=== PATIENT | male | born 1945 | race Caucasian/White ===

== ENCOUNTER 2020-05-31 08:34 | Emergency (ER) | payer MEDICARE, SELFPAY ==
[2020-05-31 08:35] VITALS: BP 150/100; PULSE 74; RESP 18; TEMP 36.6; O2SAT 99; BMI 25.9
--- NOTE | 2020-05-31 08:49 | CT_ITS ---
STUDY: CT ABDOMEN AND PELVIS WITHOUT CONTRAST REASON FOR EXAM: Male, 74 years old. LT FLANK PAIN RADIATION DOSAGE (If Supplied By Facility): CTDIvol = ( 13.49 ) mGy, DLP = ( 764.94 ) mGycm TECHNIQUE: Transaxial images were obtained from the dome of the diaphragm to the symphysis pubis without oral contrast, and without intravenous contrast. Sagittal and coronal images were reconstructed. Individualized dose optimization techniques were used for this CT. COMPARISON: None. FINDINGS: Minimal degree of from increased interstitial markings at the lung bases with mild bronchiectasis suggestive of bibasilar scarring. The visualized portions of the heart are within normal limits. Normal liver. Normal gallbladder and extrahepatic biliary system. Normal spleen. Normal pancreas. Normal bilateral adrenal glands. Mild degree of a right perinephric stranding. Perinephric stranding of the left kidney with some mild degree of hydroureter nephrosis and hydroureter due to a 2.5 mm calculus in the distal portion of the left ureter just proximal to the ureterovesical junction. There is evidence of a small bilateral parapelvic renal cysts more prominent on the left side. Normal visualized stomach. Normal small intestine. There are multiple colonic diverticula consistent with diverticulosis. The appendix is visualized and appears normal. There is scattered atherosclerotic calcification of the abdominal aorta, without a demonstrated aneurysm. Normal inferior vena cava. There is borderline retroperitoneal lymphadenopathy with enlarged nodes no greater than 10mm in the short axis diameter. Normal urinary bladder. Normal abdominal wall. Minimal anterior listhesis of L5 on S1 with spondylolysis of the pars interarticularis of the L5 vertebrae. CT/Abdomen/Pelvis without Cont IMPRESSION: Mild left hydronephrosis and hydroureter due to a 2.5 mm calculus in the distal portion of the left ureter just proximal to the ureterovesical junction. Bilateral perinephric stranding. Small bilateral parapelvic renal cysts more prominent on the left side. Electronically Signed: Misbah Colby, at 9:53 EDT , Service support ,
[2020-05-31] MEDS: Ondansetron 4 MG/2 ML Vial IV (08:55)
[2020-05-31] MEDS: Morphine 4 MG/ML Syringe IV ×2 (08:55→09:54)
[2020-05-31 09:01] LABS: Absolute Lymphocyte Count 1.17 X10^3/uL (0.83-4.51); Absolute Neutrophil Count 5.2 X10^3/uL (2.0-7.7); Basophil# 0.04 X10^3/uL; Basophil% 0.6 % (0-1); Eosinophils% 1.4 % (0-5); Hematocrit 46.3 % (40-54); Hemoglobin 15.5 g/dL (13.0-16.5); Lymphocyte # 1.17 X10^3/ul (4.0); Lymphocyte % 16.3 % (19-41); Mean Corp Hgb Conc 33.5 g/dL (32-36); Mean Corpuscular Hgb 32.6 pg (27.0-32.0); Mean Corpuscular Volume 97.5 fL (80-94); Mean Platelet Vol. 9.2 fl (6.2-12.0); Monocyte# 0.64 X10^3/uL; Monocyte% 8.9 % (0-10); NRBC Flagged by Analyzer 0 % (0-5); Neutrophil # 5.19 X10^3/uL (2.7-7.7); Neutrophil % 72.5 % (47-70); Platelet Count 241 K/mm3 (150-450); RBC Distribution Width CV 12.1 % (11.6-14.6); RBC Distribution Width SD 43.7 fl (35.1-43.9); Red Blood Count 4.75 M/mm3 (4.6-6.2); White Blood Count 7.2 K/mm3 (4.4-11.0)
[2020-05-31] MEDS: 0.9% Normal Saline 1,000 ML 250 ML IV (09:01)
[2020-05-31 09:11] LABS: Anion Gap 3 (5-15); BUN 16 mg/dL (7-18); BUN/Creat Ratio 10.5 RATIO (10-20); Calcium,Total 9.6 mg/dL (8.5-10.1); Chloride 109 mmol/L (98-107); Creatinine, Serum 1.53 mg/dL (0.70-1.30); EST Glomerular Filtration Rate 47 mL/min (>60); Est Glom Filt Rate - Afr Amer 57 mL/min (>60); Estimated Creatinine Clearance 45.11 ml/min; Glucose 123 mg/dL (74-106); Potassium 3.9 mmol/L (3.5-5.1); Sodium Level 142 mmol/L (136-145)
--- NOTE | 2020-05-31 09:13 | ED.DCSUM_ITS ---
- ER Visit Summary Date of Service: 05/31/20 Chief Complaint: Flank and abdominal pain History of Present Illness: The patient is a [address] Ha. He has a history of kidney stones. He reports that this morning at 330 he was awakened by left flank and left lower quadrant abdominal pain. States it is continuous sharp pain is 10 of 10 worsening to 10 currently. Is worsened by nothing including movement. Is also relieved by nothing. He denies any associated nausea, vomiting, or diarrhea. Last bowel movement was today. No melena medic easy. No dysuria or frequency. States this is similar to when he had kidney stones in the past. Physical Examination: Vitals: Stable. Afebrile. General: Well-nourished and well-developed. Head: Normocephalic atraumatic. Neck: Supple, no lymphadenopathy. No JVD. Nontender. Cardiovascular: Regular rate and rhythm. No murmurs. Respiratory: No respiratory distress. Clear to auscultation bilaterally. Abdominal: Soft, mild left lower quadrant and suprapubic tenderness to palpation, nondistended, normal bowel sounds. No guarding, rebound, or peritoneal signs. Back: No CVA tenderness. Extremities: Nontender, no edema. Skin: Normal color, no rash. Neurologic: Alert and oriented ?3. Cranial nerves II through XII are intact. Normal strength and sensation. Psych: Normal affect. Test Results: CBC shows 7 neutrophils of 73 lymphocytes 16. Chem-7 shows a chloride 109, glucose 123, creatinine 1.53. Urinalysis shows greater than 100 reds. No evidence of infection. Clinical Impression(s) from Imaging Studies Abdomen/Pelvis CT 05/31/20 08:49 IMPRESSION: Mild left hydronephrosis and hydroureter due to a 2.5 mm calculus in the distal portion of the left ureter just proximal to the ureterovesical junction. Bilateral perinephric stranding. Small bilateral parapelvic renal cysts more prominent on the left side. Electronically Signed: Misbah Colby, at 9:53 EDT , Service support , Emergency Department Course and Treatment: Patient had an IV placed. He was given morphine and Zofran IV. He is resting more comfortably. Treatment Plan: Patient will be discharged with Percocet, Zofran, naproxen. Instructed to follow-up with Dr. Arciniega in 1 week if not improving. Return to the emergency department for any worsening symptoms. Disposition: To home in improved and stable condition. Impression: 1 1. Left ureterolithiasis. This note was generated with [employer] dictation software. It may contain incorrect words, spelling, and punctuation that were not noted in review of the chart prior to signing ED Disposition - Plan for ED Patient: Instructions: ED Renal Stone w Colic Prescriptions: Naproxen [Naprosyn] 500 mg PO BID #14 tab Oxycodone HCl/Acetaminophen [Percocet 5/325] 1 tab PO Q6H PRN PRN 3 Days #12 tab PRN Reason: Pain Ondansetron [Zofran Odt] 4 mg PO Q8H PRN PRN #10 tab PRN Reason: Nausea Referrals: Kamran Arciniega MD [STAFF PHYSICIAN] - 1 Week if not improving
[2020-05-31] MEDS: Ketorolac 15 MG/ML Vial IV (10:56)
[2020-05-31 10:58] VITALS: BP 138/76; PULSE 80; RESP 16; O2SAT 99
--- NOTE | 2020-05-31 11:31 | ED.RN ---
MULTIPLE ATTEMPTS MADE TO URINAE. DR COSTA MADE AWARE. OBSERVE PT UNTIL ABLE TO URINATE.
[2020-05-31 13:01] VITALS: BP 155/89; PULSE 82; RESP 16; O2SAT 99
[2020-05-31 13:06] LABS: Bacteria 0 SEEN /hpf (None Seen); Mucous, Urine 0 SEEN /hpf (<or=2+); White Blood Cells 0 SEEN /hpf (0-5)
[2020-05-31 13:09] LABS: Color, Urine Yellow (Yellow); Glucose, Dipstick Normal (Normal); Ketone-Dipstick 5 mg/dl (Negative); Leukocyte Esterase-Dipstick 25 /ul (Negative); Nitrite-Dipstick Negative (Negative); Occult Blood-Urine 250 /ul (Negative); Protein-Dipstick Negative (Negative); Urine Bilirubin Dipstick Negative (Negative); Urine Clarity Clear (Clear); Urine Urobilinogen Normal (Normal); Urine pH 6.5 (5.0 - 8.0)
[2020-05-31 13:28] LABS: Red Blood Cells-Urine > 100 SEEN /hpf (0-5); Squamous Epithelial Cells - UA 0-5 SEEN /hpf (0-5)
[2020-05-31 14:15] VITALS: BP 135/85; PULSE 77; RESP 15; O2SAT 97
== END 2020-05-31 14:16 | disposition home or self-care (01) ==
PROVIDERS: Emergency Provider Emergency Medicine; PCP Internal Medicine
DX: N13.2 Hydronephrosis with renal and ureteral calculous obstruction (principal); Z87.442 Personal history of urinary calculi
CPT/HCPCS: 74176; 80048; 81001; 85025; 96361; 96374; 96375; 96376; 99283; J7030; A4216; J2405

== ENCOUNTER 2020-07-09 03:49 | Emergency (ER) | payer MEDICARE, SELFPAY ==
[2020-07-09 03:50] VITALS: BP 153/105; PULSE 78; RESP 18; TEMP 36.4; O2SAT 99; BMI 27.1
--- NOTE | 2020-07-09 03:56 | CT_ITS ---
STUDY: CT ABDOMEN AND PELVIS WITHOUT CONTRAST REASON FOR EXAM: Male, 74 years old patient with left sided flank pain and bladder pressure. Past medical history of kidney stones. RADIATION DOSAGE (If Supplied By Facility): CTDIvol = ( 9.04 ) mGy, DLP = ( 700.62 ) mGycm TECHNIQUE: Transaxial images were obtained from the dome of the diaphragm to the symphysis pubis without oral contrast, and without intravenous contrast. Sagittal and coronal images were reconstructed. Individualized dose optimization techniques were used for this CT. COMPARISON: CT of the abdomen and pelvis dated 05/31/2020. FINDINGS: There is mild elevation of left hemidiaphragm. There is a left basilar compressive atelectasis. The visualized portions of the heart are within normal limits. Normal liver. Normal gallbladder and extrahepatic biliary system. Normal spleen. There is diffuse atrophy of the pancreas. Normal bilateral adrenal glands. The right kidney appears to have parapelvic cysts which measure up to 10.4 mm. There is moderate left-sided hydronephrosis and hydroureter secondary to a distal ureteral calculus at the ureterovesical junction measuring approximately 4 mm. There is moderate left-sided perinephric stranding and fluid probably secondary to the hydronephrosis. Normal visualized stomach. There is no evidence for dilated bowel, ascites or pneumoperitoneum. The small bowel has a grossly normal unenhanced appearance. The ascending colon is not distended which gives the appearance of thickened jiménez. This does visible ulcer; scattered diverticula. The appendix is visualized and appears normal. Normal abdominal aorta. Normal inferior vena cava. Normal retroperitoneum. Normal urinary bladder. There are prostatic calcifications. There appear to be inguinal hernias containing fat. There is spondylolysis of L5. Bones appear osteopenic. Estimated thoracic and lumbar vertebral bodies have normal height and alignment. CT/Abdomen/Pelvis without Cont IMPRESSION: Moderate left-sided hydronephrosis and hydroureter secondary to a distal ureteral calculus. Electronically Signed: Kareen Bradshaw MD at 4:57 EDT , Service support ,
--- NOTE | 2020-07-09 03:57 | ED.VISSUMM ---
- ER Visit Summary Date of Service: 07/09/20 Chief Complaint: Left flank pain History of Present Illness: The patient is a [address] Ha. He reports his left flank pain began abruptly approximately 4 hours ago. Is a sharp pain is 1010 worsening to 10 currently. Worsened by nothing relieved by nothing. Denies any nausea, vomiting, or diarrhea. Last bowel was yesterday. No melena or hematochezia. No dysuria or frequency. This is similar to when he had kidney stones in the past. Physical Examination: Vitals: Stable. Afebrile. General: Well-nourished and well-developed. Head: Normocephalic atraumatic. Neck: Supple, no lymphadenopathy. No JVD. Nontender. Cardiovascular: Regular rate and rhythm. No murmurs. Respiratory: No respiratory distress. Clear to auscultation bilaterally. Abdominal: Soft, mild suprapubic tenderness to palpation, nondistended, normal bowel sounds. No guarding, rebound, or peritoneal signs. Back: No CVA tenderness. Extremities: Nontender, no edema. Skin: Normal color, no rash. Neurologic: Alert and oriented ?3. Cranial nerves II through XII are intact. Normal strength and sensation. Psych: Normal affect. Test Results: Urinalysis shows blood with no evidence of infection. Clinical Impression(s) from Imaging Studies Abdomen/Pelvis CT 07/09/20 03:56 IMPRESSION: Moderate left-sided hydronephrosis and hydroureter secondary to a distal ureteral calculus. Electronically Signed: Kareen Bradshaw MD at 4:57 EDT , Service support , Emergency Department Course and Treatment: Patient had an IV placed. He is given morphine and Zofran IV. He is resting more comfortably. Treatment Plan: Patient will be discharged with Percocet, Zofran, and Colace. Instructed to follow-up with Dr. Arciniega in 3 to 5 days if not improving. Return to the emergency department for any worsening symptoms. Disposition: To home in improved and stable condition. Impression: 1. Left ureterolithiasis. This note was generated with [employer] software. It may contain incorrect words, spelling, and punctuation that were not noted in review of the chart prior to signing ED Disposition - Plan for ED Patient: Instructions: ED Renal Stone w Colic Prescriptions: Docusate Sodium [Colace] 100 mg PO DAILY #20 capsule Oxycodone HCl/Acetaminophen [Percocet 5/325] 1 tablet PO Q6H PRN PRN 3 Days #12 tablet PRN Reason: Pain Referrals: Kamran Arciniega MD [STAFF PHYSICIAN] - 3-5 Days if not improving
[2020-07-09] MEDS: Ondansetron 4 MG/2 ML Vial IV (04:08)
[2020-07-09] MEDS: Morphine 4 MG/ML Syringe IV (04:08)
[2020-07-09] MEDS: 0.9% Normal Saline 1,000 ML 250 ML IV (04:13)
[2020-07-09 06:32] LABS: Mucous, Urine 0 SEEN /hpf (<or=2+); Squamous Epithelial Cells - UA 0 SEEN /hpf (0-5)
[2020-07-09 06:34] LABS: Color, Urine Yellow (Yellow); Glucose, Dipstick Normal (Normal); Ketone-Dipstick Negative (Negative); Leukocyte Esterase-Dipstick 25 /ul (Negative); Nitrite-Dipstick Negative (Negative); Occult Blood-Urine 250 /ul (Negative); Protein-Dipstick 15 mg/dl (Negative); Specific Gravity, Urine 1.015 (1.002-1.030); Urine Bilirubin Dipstick Negative (Negative); Urine Clarity Clear (Clear); Urine Urobilinogen Normal (Normal); Urine pH 6.5 (5.0 - 8.0)
[2020-07-09 06:41] LABS: Red Blood Cells-Urine 0-5 SEEN /hpf (0-5); White Blood Cells 0-5 SEEN /hpf (0-5)
[2020-07-09 06:42] LABS: Bacteria RARE /hpf (None Seen)
[2020-07-09 07:17] VITALS: BP 137/85; PULSE 77; RESP 16; O2SAT 96
--- NOTE | 2020-07-09 07:18 | ED.RN ---
REVIEWED D/C INSTRUCTIONS, FOLLOW UP CARE, PRESCRIPTIONS, AND S/S THAT WOULD WARRANT A RETURN TO THE ED WITH PT. PT VERBALIZED AN UNDERSTANDING AND DENIES FURTHER QUESTIONS FOR THIS RN. PT SKIN P/W/D, RESP EVEN AND UNLABORED, PT A&O X 3, NO DISTRESS NOTED. PT AMBULATED OUT OF ED, GAIT STEADY.
== END 2020-07-09 07:19 | disposition home or self-care (01) ==
PROVIDERS: Emergency Provider Emergency Medicine; PCP Internal Medicine
DX: N13.2 Hydronephrosis with renal and ureteral calculous obstruction (principal); Z87.442 Personal history of urinary calculi
CPT/HCPCS: 74176; 81001; 96361; 96374; 96375; 99283; A4216; J2405

== ENCOUNTER 2024-10-12 12:00 | Outpatient (RCR) | payer MEDICARE, SELFPAY ==
--- NOTE | 2024-09-14 12:59 | HP.OTEVAL_ITS ---
Patient's Visit Information Visit Information Visit Information: BATSHEVA PEREZ is a 79 year old M, referred to Occupational Therapy by Dr. Bienvenido Greer MD, with a diagnosis of trigger finger of right ring finger and middle finger; hand arthritis. Date of Evaluation: 09/14/24 Occupational Therapist: Lauren Dillon Subjective Subjective: This 79 year old male reports fall in March 2024 landed on R hand pt states he started having shooting pains in his hand approx 3 weeks ago. pt went to [facility] and was dx with trigger finger as well as arthritis. Trigger finger of R hand D3 and D4. 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 Pt has not been able to make full fist since fall in march 2024 limited in composite fist flexion. Pt is R hand dominant. pt is retired teacher. pt has been wearing a compression glove for past 3 weeks which he states he has been wearing for several hours a day during the day. Pain R hand: Current Pain Intensity: 0 Pain Intensity Range: 5 Objective Objective/Observation: pt arrives doing well dupytrens noted in R hand at D5 beginning between webspace of thumb and D2. swelling noted R hand at PIP of D3 and D4 ROM Wrist: R 55/35 L60/30 MP: R /50 IP: R 0/78 Opposition: wfl MP: R hand D2 0/50 D3 0/55 D4 0/55 D5 -10/90 PIP: R hand D2 0/75 D3 -11/70 D4 -14/70 D5 0/85 DIP: R hand D2 0/50 D3 0/50 D4 0/40 D5 0/45 ROM Comments: able to make composite fist with L hand Strength Biomedical Engineering Technician: R 3# L 45# Lateral Pinch: R 5# L 8# Tripod Pinch: R 2# L 8# Edema Wrist: R 17 cm L 17 cm PIP: R D 3 7.5 cm D4 7.5 cm; L D3 6.5 cm L D4 6.5 cm Sensation Sensation Comments: denies Quick DASH-Disab of Arm,Shoulder& Hand Quick DASH Score: 20.4525 Goals Goal:ROM equal to unaffected hand: Yes Goal:Biomedical Engineering Technician/Pinch strength at least 75% of unaffected hand: Yes Goal:No pain with affected hand use: Yes Goal:PIP Circumferences equal to unaffected hand: Yes Goal:Full use of affected hand in daily activities including work: Yes Comment: quick dash Other Goal: pt will improve quick dash score by 5 points or more in order to maximize functional use of R hand pt will verbalize/demonstrate 100% accuracy in proper joint protection/ positioning of R hand at D3 and D4 to decrease pain and increase functional use pt will verbalize/ demonstrate 100% accuracy in bracing as needed to R hand for decreased pain and joint protection Rehabilitation General Assessment: This 79 year old male arrives with dx of trigger finger R MF as well as RF and hand arthritis. Pt presents with pain in R hand at MF and RF as well as at wrist. pt with decreased ROM at MP PIP and DIP joints in flexion as well a limited extension at PIP of D4 and D5 unable to make full composite fist. Pt with decreased strength of R hand impacting day to day function as well as increased swelling at PIP joint of R hand D4 and D4. pt would benefit from OT services 1x a week for 4 weeks in order to decrease pain and inflammation, improve ROM in flexion and extension as well as strength to return to functional use of R hand. Rehabilitation Potential: Good Anticipated Interventions Anticipated Interventions: A/AAROM/PROM, Strengthening, Edema Control, Triggerpoint Release, Modalities, Orthoses, Joint Protection/Energy Conservation, Fine Motor Coord/Randall, Education re Diagnosis and Home Program Visit Plan Frequency: 1x/Week Duration: 4 Weeks General Plan: AROM/AAROM/PROM joint protection and positioning bracing pain management edema management TEXT: Thank you for the opportunity to evaluate your patient. For Medicare and Medicare HMO plans, please review the plan of care and approve it. It will need to be FAXED BACK to us at [phone] for Medicare purposes. Please let me know if there are questions or concerns regarding this plan of care. Physician Signature: Date:
--- NOTE | 2024-10-13 10:31 | HP.OT.NRP ---
Patient Information Patient Information: BATSHEVA PEREZ was seen in my office for initial evaluation on 09/14/24. The following Plan of Care was established for this patient: POC Established Initial Frequency: 1x/Week Initial Duration: 4 Weeks Plan: PT can be D/Robbie. Anticipated Interventions Anticipated Interventions: A/AAROM/PROM, Strengthening, Edema Control, Triggerpoint Release, Modalities, Orthoses, Joint Protection/Energy Conservation, Fine Motor Coord/Randall, Education re Diagnosis and Home Program Last Seen Last Seen: This patient was last seen in our office 10/12/24. Pertinent comments regarding their Occupational therapy will appear below: This 79 year old male seen for OT dx of trigger finger RF MF of R hand as well as hand arthritis. Pt seen with ed on joint protection, positioning and a proper home exercise program. discharge at this time pt in agreeance. At this point I will be discontinuing this patient from occupational therapy. I would be happy to see this patient again in the future if found appropriate by the physician. Thank you! Lauren Dillon
== END 2024-10-12 19:00 | disposition home or self-care (01) ==
LOC: OT 12:00
PROVIDERS: PCP Internal Medicine; Referring Provider Orthopaedic Surgery; Visit Provider Orthopaedic Surgery
DX: M65.341 Trigger finger, right ring finger (principal); M65.331 Trigger finger, right middle finger; M19.049 Primary osteoarthritis, unspecified hand
CPT/HCPCS: 97035; 97110; 97140; 97165; 97530